=== PATIENT | female | born 1935 | race Caucasian/White ===

== ENCOUNTER 2018-01-05 03:29 | Inpatient (IN) ==
[2018-01-05 04:05] LABS: Basophils # 0.1 10*3/uL (0.0-0.2); Basophils % 0.5 % (0.0-0.8); Eosinophils # 0.2 10*3/uL (0.0-0.87); Eosinophils % 1.7 % (0.00-10.9); Hematocrit 39.3 VOL% (35.7-47.0); Hemoglobin 12.3 GM/DL (12.0-16.0); Immature Granulocytes % 0.4 %; Immature Granulocytes Absolute 0.04 #; Lymphocytes # 1.3 10*3/uL (1.4-4.0); Lymphocytes % 12.8 % (21.3-54.2); Mean Corpuscular HGB Conc 31.3 GM/DL (32-36); Mean Corpuscular Hemoglobin 25 PG (27-34); Mean Corpuscular Volume 79.9 FL (87-102); Mean Platelet Volume 10.9 FL (9.6-12.0); Monocytes # 0.6 10*3/uL (0.11-0.8); Monocytes % 5.5 % (1.7-12.7); Neutrophils # 8.2 10*3/uL (1.4-7.4); Neutrophils % 79.1 % (38.7-73.9); Platelet Count 236 T/CUMM (130-400); Red Blood Count 4.92 MC/CUMM (3.8-5.5); Red Cell Distribution Width 18.7 % (9.3-17.3); White Blood Count 10.3 T/CUMM (4-12)
[2018-01-05] MEDS ORDERED: ONDANSETRON 4 MG/2 ML VIAL IV ONE (04:16)
[2018-01-05] MEDS ORDERED: MORPHINE 4 MG/1 ML VIAL IV STA (04:16)
[2018-01-05 04:17] LABS: PT Patient Result 10.2 SECS; Partial Thromboplastin Time 24.8 SECS (0-40)
[2018-01-05 04:26] LABS: Albumin 3.8 G/DL (3.4-5.0); Bilirubin,Total 0.5 MG/DL (0.2-1.0); Calcium 9.1 MG/DL (8.5-10.1); Osmolality,Calculated 287.5 MOS/KG (273-304); Potassium 4.7 MMOL/L (3.5-5.1); Total Protein 6.8 G/DL (6.4-8.3)
[2018-01-05] MEDS ORDERED: MORPHINE 4 MG/1 ML VIAL IV PRN (05:49)
[2018-01-05] MEDS ORDERED: MAGNESIUM SULF RIDER 2 GM in PREMIX 1 EACH IV PRN (05:49)
[2018-01-05] MEDS ORDERED: ONDANSETRON 4 MG/2 ML VIAL IV PRN (05:49)
[2018-01-05] MEDS ORDERED: NITROGLYCERIN SL 0.4 MG TABLET SL PRN (05:49)
[2018-01-05] MEDS ORDERED: DEXTROSE 50% 25 GM/50 ML VIAL IV PRN (06:09)
[2018-01-05] MEDS ORDERED: GLUCAGON 1 MG VIAL IM PRN (06:09)
[2018-01-05 07:15] LABS: Risk Ratio 3.4; VLDL CHOLESTEROL 21.4 MG/DL
[2018-01-05] MEDS: ENOXAPARIN 60 MG/0.6 ML SYRINGE SUBCUT SCH ×2 (09:14→17:36)
[2018-01-05] MEDS: PANTOPRAZOLE 40 MG TABLET PO SCH ×2 (09:15→20:44)
[2018-01-05] MEDS: GLIMEPIRIDE 2 MG TABLET PO SCH (09:15)
[2018-01-05] MEDS: LISINOPRIL 5 MG TABLET PO SCH (09:15)
[2018-01-05] MEDS: INSULIN REGULAR 100 UNIT/ML SUBCUT SCH ×4 (09:18→20:44)
[2018-01-05] MEDS: TIMOLOL 0.25% OPH SOLN 5 ML BOTTLE BOTH EYES SCH (09:20)
[2018-01-05] MEDS: ASPIRIN EC 81 MG TABLET PO SCH (10:34)
[2018-01-05] MEDS: NITROGLYCERIN 2% OINT 1 INCH/GM PACK TOP SCH ×3 (10:41→22:00)
[2018-01-05 16:13] LABS: CKMB % 5.8 %
[2018-01-05 16:15] LABS: Troponin I 1.72 NG/ML (0.00-0.045)
[2018-01-05] MEDS: ROSUVASTATIN 20 MG TABLET PO SCH (20:44)
[2018-01-06 03:32] LABS: Basophils % 0.4 % (0.0-0.8); Eosinophils # 0.1 10*3/uL (0.0-0.87); Eosinophils % 1.9 % (0.00-10.9); Hematocrit 33.9 VOL% (35.7-47.0); Hemoglobin 10.5 GM/DL (12.0-16.0); Immature Granulocytes % 0.2 %; Immature Granulocytes Absolute 0.01 #; Lymphocytes # 1.6 10*3/uL (1.4-4.0); Lymphocytes % 32.6 % (21.3-54.2); Mean Corpuscular Hemoglobin 25 PG (27-34); Mean Corpuscular Volume 79.2 FL (87-102); Mean Platelet Volume 10.9 FL (9.6-12.0); Monocytes # 0.5 10*3/uL (0.11-0.8); Monocytes % 9.8 % (1.7-12.7); Neutrophils # 2.7 10*3/uL (1.4-7.4); Neutrophils % 55.1 % (38.7-73.9); Platelet Count 190 T/CUMM (130-400); Red Blood Count 4.28 MC/CUMM (3.8-5.5); Red Cell Distribution Width 19.4 % (9.3-17.3); White Blood Count 4.8 T/CUMM (4-12)
[2018-01-06 03:54] LABS: Calcium 8.5 MG/DL (8.5-10.1); Osmolality,Calculated 279.5 MOS/KG (273-304); Potassium 3.9 MMOL/L (3.5-5.1)
[2018-01-06 03:56] LABS: Calcium 8.4 MG/DL (8.5-10.1); Osmolality,Calculated 276.7 MOS/KG (273-304); Potassium 3.9 MMOL/L (3.5-5.1)
[2018-01-06] MEDS: NITROGLYCERIN 2% OINT 1 INCH/GM PACK TOP SCH ×3 (04:38→14:51)
[2018-01-06] MEDS: ENOXAPARIN 60 MG/0.6 ML SYRINGE SUBCUT SCH (06:00)
[2018-01-06] MEDS ORDERED: SODIUM CHLORIDE 0.9% 1,000 ML IV SCH (08:00)
[2018-01-06] MEDS: GLIMEPIRIDE 2 MG TABLET PO SCH (08:48)
[2018-01-06] MEDS: LISINOPRIL 5 MG TABLET PO SCH (08:48)
[2018-01-06] MEDS: PANTOPRAZOLE 40 MG TABLET PO SCH ×2 (08:48→21:55)
[2018-01-06] MEDS: ASPIRIN EC 81 MG TABLET PO SCH (08:48)
[2018-01-06] MEDS: TIMOLOL 0.25% OPH SOLN 5 ML BOTTLE BOTH EYES SCH (08:59)
[2018-01-06] MEDS: INSULIN REGULAR 100 UNIT/ML SUBCUT SCH ×4 (08:59→21:55)
[2018-01-06] MEDS ORDERED: diphenhydrAMINE CAP 25 MG CAPSULE PO ONE (10:00)
[2018-01-06] MEDS ORDERED: POTASSIUM CHLORIDE RIDER 10 MEQ in PREMIX 1 EACH IV PRN (10:00)
[2018-01-06] MEDS ORDERED: DIAZEPAM 5 MG TABLET PO ONE (10:00)
[2018-01-06] MEDS ORDERED: fentaNYL 100 MCG/2 ML VIAL ONE (14:06)
[2018-01-06] MEDS ORDERED: LIDOCAINE 1% 20 ML VIAL ONE (14:06)
[2018-01-06] MEDS ORDERED: MIDAZOLAM 2 MG/2 ML VIAL ONE (14:06)
[2018-01-06] MEDS: ISOSORBIDE MONONITRATE 30 MG TABLET PO SCH (18:02)
[2018-01-06] MEDS: ROSUVASTATIN 20 MG TABLET PO SCH (21:55)
[2018-01-06] MEDS ORDERED: ACETAMINOPHEN 325 MG TABLET PO PRN (23:24)
[2018-01-07 04:42] LABS: Basophils % 0.6 % (0.0-0.8); Eosinophils % 0.9 % (0.00-10.9); Hematocrit 34.2 VOL% (35.7-47.0); Hemoglobin 10.3 GM/DL (12.0-16.0); Immature Granulocytes % 0.3 %; Immature Granulocytes Absolute 0.01 #; Lymphocytes % 29.7 % (21.3-54.2); Mean Corpuscular HGB Conc 30.1 GM/DL (32-36); Mean Corpuscular Hemoglobin 24 PG (27-34); Mean Corpuscular Volume 80.7 FL (87-102); Mean Platelet Volume 11.1 FL (9.6-12.0); Monocytes # 0.4 10*3/uL (0.11-0.8); Neutrophils # 1.9 10*3/uL (1.4-7.4); Neutrophils % 57.5 % (38.7-73.9); Platelet Count 166 T/CUMM (130-400); Red Blood Count 4.24 MC/CUMM (3.8-5.5); Red Cell Distribution Width 19.5 % (9.3-17.3); White Blood Count 3.3 T/CUMM (4-12)
[2018-01-07 05:07] LABS: Calcium 8.2 MG/DL (8.5-10.1); Osmolality,Calculated 278.5 MOS/KG (273-304)
[2018-01-07 07:53] VITALS: BP 127/64
[2018-01-07] MEDS: INSULIN REGULAR 100 UNIT/ML SUBCUT SCH (08:58)
[2018-01-07] MEDS: ISOSORBIDE MONONITRATE 30 MG TABLET PO SCH (08:59)
[2018-01-07] MEDS: ASPIRIN EC 81 MG TABLET PO SCH (08:59)
[2018-01-07] MEDS: GLIMEPIRIDE 2 MG TABLET PO SCH (08:59)
[2018-01-07] MEDS: LISINOPRIL 5 MG TABLET PO SCH (08:59)
[2018-01-07] MEDS: PANTOPRAZOLE 40 MG TABLET PO SCH (08:59)
[2018-01-07] MEDS ORDERED: CLOPIDOGREL 75 MG TABLET PO SCH (09:00)
[2018-01-07] MEDS ORDERED: ENOXAPARIN 40 MG/0.4 ML SYRINGE SUBCUT SCH (09:00)
[2018-01-07] MEDS: TIMOLOL 0.25% OPH SOLN 5 ML BOTTLE BOTH EYES SCH (09:03)
== END 2018-01-07 11:42 | disposition home or self-care (01) | DRG 282 ==
LOC: EDBD → EDUNIT# → N.ED 03:29 → N.EDINP 03:29 → N.TELEN 07:08
PROVIDERS: ADMIT Internal Medicine; ATTEND Internal Medicine
PROC: CLCCHCL (ICD-10-PCS; 2018-01-06 14:45)

== ENCOUNTER 2018-12-23 08:55 | Inpatient (IN) ==
[2018-12-23] MEDS ORDERED: NITROGLYCERIN 2% OINT 1 INCH/GM PACK TOP STA (09:21)
[2018-12-23] MEDS ORDERED: ASPIRIN 325 MG TABLET PO STA (09:21)
[2018-12-23] MEDS ORDERED: ENOXAPARIN 100 MG/ML SYRINGE SUBCUT STA (09:21)
[2018-12-23 09:30] LABS: Basophils % 0.4 % (0.0-0.8); Eosinophils # 0.2 10*3/uL (0.0-0.87); Hematocrit 35.7 VOL% (35.7-47.0); Hemoglobin 11.6 GM/DL (12.0-16.0); Immature Granulocytes % 0.5 %; Immature Granulocytes Absolute 0.04 #; Lymphocytes # 1.2 10*3/uL (1.4-4.0); Lymphocytes % 16.2 % (21.3-54.2); Mean Corpuscular HGB Conc 32.5 GM/DL (32-36); Mean Corpuscular Volume 90.2 FL (87-102); Mean Platelet Volume 10.5 FL (9.6-12.0); Monocytes % 6.8 % (1.7-12.7); Neutrophils % 74.1 % (38.7-73.9); Platelet Count 193 T/CUMM (130-400); Red Blood Count 3.96 MC/CUMM (3.8-5.5); Red Cell Distribution Width 14.3 % (9.3-17.3); White Blood Count 7.6 T/CUMM (4-12)
[2018-12-23 09:39] LABS: INR 0.9; PT Patient Result 10.2 SECS (9.6-12.2)
[2018-12-23 09:55] LABS: Albumin 3.4 G/DL (3.4-5.0); Bilirubin,Total 0.8 MG/DL (0.2-1.0); Calcium 8.5 MG/DL (8.5-10.1); Osmolality,Calculated 289.1 MOS/KG (273-304)
[2018-12-23] MEDS ORDERED: ONDANSETRON 4 MG/2 ML VIAL ONE (10:38)
[2018-12-23] MEDS ORDERED: MORPHINE 4 MG/1 ML VIAL ONE (10:39)
[2018-12-23] MEDS ORDERED: ONDANSETRON 4 MG/2 ML VIAL IV STA ×2 (10:49→13:36)
[2018-12-23] MEDS ORDERED: MORPHINE 4 MG/1 ML VIAL IV STA ×2 (10:50→13:36)
[2018-12-23] MEDS ORDERED: ACETAMINOPHEN 325 MG TABLET PO PRN (12:25)
[2018-12-23] MEDS ORDERED: ONDANSETRON 4 MG/2 ML VIAL IV PRN (12:25)
[2018-12-23 13:34] LABS: Risk Ratio 2.18; Thyroid Stimulating Hormone 1.1 uIU/ml (0.358-3.74); VLDL CHOLESTEROL 28.2 MG/DL
[2018-12-23] MEDS ORDERED: ONDANSETRON 4 MG/2 ML VIAL IV ONE (15:31)
[2018-12-23] MEDS ORDERED: GLUCAGON 1 MG VIAL IM PRN (15:35)
[2018-12-23] MEDS ORDERED: DEXTROSE 10% 250 ML BAG IV PRN (15:35)
[2018-12-23] MEDS ORDERED: NITROGLYCERIN SL 0.4 MG TABLET SL PRN (15:35)
[2018-12-23] MEDS ORDERED: ALUM/MAG/SIMETH/LIDO VISC 1:1 30 ML BOTTLE PO ONE (16:23)
[2018-12-23] MEDS ORDERED: MAGNESIUM SULF RIDER 2 GM in PREMIX 1 EACH IV ONE (16:26)
[2018-12-23] MEDS: INSULIN REGULAR 100 UNIT/ML SUBCUT SCH ×2 (16:44→22:06)
[2018-12-23] MEDS ORDERED: MORPHINE 4 MG/1 ML VIAL IV PRN (17:07)
[2018-12-23] MEDS ORDERED: PROMETHAZINE 25 MG/1 ML VIAL IM PRN (17:09)
[2018-12-23] MEDS ORDERED: NITROGLYCERIN 2% OINT 1 INCH/GM PACK TOP SCH (18:00)
[2018-12-23] MEDS ORDERED: rOPINIRole 1 MG TABLET PO SCH (21:00)
[2018-12-23] MEDS ORDERED: ENOXAPARIN 60 MG/0.6 ML SYRINGE SUBCUT SCH (22:00)
[2018-12-23] MEDS: CARVEDILOL 6.25 MG TABLET PO SCH (22:05)
[2018-12-23] MEDS: metFORMIN 500 MG TABLET PO SCH (22:05)
[2018-12-23] MEDS: SIMVASTATIN 10 MG TABLET PO SCH (22:09)
[2018-12-24 06:08] LABS: Basophils % 0.3 % (0.0-0.8); Eosinophils % 0.3 % (0.00-10.9); Hematocrit 37.2 VOL% (35.7-47.0); Hemoglobin 12.2 GM/DL (12.0-16.0); Immature Granulocytes % 0.3 %; Immature Granulocytes Absolute 0.02 #; Lymphocytes # 1.2 10*3/uL (1.4-4.0); Lymphocytes % 17.1 % (21.3-54.2); Mean Corpuscular HGB Conc 32.8 GM/DL (32-36); Mean Corpuscular Volume 90.5 FL (87-102); Mean Platelet Volume 10.5 FL (9.6-12.0); Monocytes % 7.9 % (1.7-12.7); Neutrophils % 74.1 % (38.7-73.9); Platelet Count 204 T/CUMM (130-400); Red Blood Count 4.11 MC/CUMM (3.8-5.5); Red Cell Distribution Width 14.6 % (9.3-17.3); White Blood Count 6.9 T/CUMM (4-12)
[2018-12-24 06:40] LABS: Calcium 8.5 MG/DL (8.5-10.1); Osmolality,Calculated 288.1 MOS/KG (273-304)
[2018-12-24 06:56] LABS: CKMB % 5.4 %; Troponin I 1.42 NG/ML (0.00-0.045)
[2018-12-24] MEDS ORDERED: PANTOPRAZOLE 40 MG TABLET PO SCH (09:00)
[2018-12-24] MEDS ORDERED: LISINOPRIL 5 MG TABLET PO SCH (09:00)
[2018-12-24] MEDS ORDERED: ENOXAPARIN 40 MG/0.4 ML SYRINGE SUBCUT SCH (09:00)
[2018-12-24] MEDS ORDERED: VERAPAMIL SR 180 MG TABLET PO SCH (09:30)
[2018-12-24] MEDS: INSULIN REGULAR 100 UNIT/ML SUBCUT SCH ×4 (10:22→21:11)
[2018-12-24 15:41] LABS: Apearance,Urine CLEAR (Clear); Bilirubin,Urine Negative (Negative); Blood, Urine Negative (Negative); Glucose,Urine (UA) Negative (Negative); Hyaline Casts,Urine 1 /LPF (0-3); Ketones,Urine 80 mg/dL (Negative); Mucus,Urine Occasional /LPF (Occasional); Nitrite,Urine Negative (Negative); Protein,Urine Negative; RBC,Urine 1 /HPF (0-4); Squamous Epithelial Cell,Urine Occasional /HPF (0-10); Urine Color Yellow (Yellow); Urine Specific Gravity 1.025 (1.001-1.035); Urine Urobilinogen < 2.0 EU/DL (0.2-1.0); WBC,Urine 4 /HPF (0-6)
[2018-12-24] MEDS ORDERED: METOPROLOL TARTRATE 5 MG/5 ML VIAL IV ONE ×2 (16:00→16:05)
[2018-12-24] MEDS: CARVEDILOL 6.25 MG TABLET PO SCH (16:24)
[2018-12-24] MEDS: ENOXAPARIN 40 MG/0.4 ML SYRINGE SUBCUT SCH (16:25)
[2018-12-24] MEDS: IRON (CARBONYL)/VIT C/B12/FA TABLET PO SCH (16:25)
[2018-12-24] MEDS: GLIMEPIRIDE 2 MG TABLET PO SCH (16:25)
[2018-12-24] MEDS: metFORMIN 500 MG TABLET PO SCH ×2 (16:25→21:11)
[2018-12-24] MEDS: ASPIRIN EC 81 MG TABLET PO SCH (16:25)
[2018-12-24] MEDS: TIMOLOL 0.25% OPH SOLN 5 ML BOTTLE BOTH EYES SCH (16:26)
[2018-12-24] MEDS: CETIRIZINE 10 MG TABLET PO SCH (16:26)
[2018-12-24] MEDS ORDERED: DEXTROSE 5% NACL 0.9% 1,000 ML IV SCH (17:00)
[2018-12-24] MEDS ORDERED: DEXTROSE 5% NACL 0.45% 1,000 ML IV SCH (17:00)
[2018-12-24 18:01] LABS: Troponin I 0.852 NG/ML (0.00-0.045)
[2018-12-24 19:09] LABS: Calcium 8.8 MG/DL (8.5-10.1); Osmolality,Calculated 287.3 MOS/KG (273-304)
[2018-12-24 19:55] LABS: Troponin I 0.825 NG/ML (0.00-0.045)
[2018-12-24] MEDS ORDERED: SODIUM CHLORIDE 0.9% 1,000 ML IV SCH (20:00)
[2018-12-24] MEDS: METOPROLOL TARTRATE 25 MG TABLET PO SCH (21:11)
[2018-12-24] MEDS: SIMVASTATIN 10 MG TABLET PO SCH (21:11)
[2018-12-24] MEDS: PANTOPRAZOLE 40 MG TABLET PO SCH (21:11)
[2018-12-24 23:16] LABS: Troponin I 0.742 NG/ML (0.00-0.045)
[2018-12-25 04:12] LABS: Basophils % 0.7 % (0.0-0.8); Eosinophils # 0.1 10*3/uL (0.0-0.87); Eosinophils % 1.4 % (0.00-10.9); Hematocrit 33.1 VOL% (35.7-47.0); Hemoglobin 10.5 GM/DL (12.0-16.0); Immature Granulocytes % 0.2 %; Immature Granulocytes Absolute 0.01 #; Lymphocytes # 1.4 10*3/uL (1.4-4.0); Lymphocytes % 25.2 % (21.3-54.2); Mean Corpuscular HGB Conc 31.7 GM/DL (32-36); Mean Corpuscular Volume 92.2 FL (87-102); Mean Platelet Volume 10.8 FL (9.6-12.0); Monocytes % 10.4 % (1.7-12.7); Neutrophils % 62.1 % (38.7-73.9); Platelet Count 172 T/CUMM (130-400); Red Blood Count 3.59 MC/CUMM (3.8-5.5); Red Cell Distribution Width 14.5 % (9.3-17.3); White Blood Count 5.6 T/CUMM (4-12)
[2018-12-25 04:21] LABS: Calcium 8.3 MG/DL (8.5-10.1); Osmolality,Calculated 291.7 MOS/KG (273-304)
[2018-12-25 04:27] LABS: Troponin I 0.536 NG/ML (0.00-0.045)
[2018-12-25] MEDS: INSULIN REGULAR 100 UNIT/ML SUBCUT SCH ×4 (07:33→21:52)
[2018-12-25] MEDS: CETIRIZINE 10 MG TABLET PO SCH (08:32)
[2018-12-25] MEDS: IRON (CARBONYL)/VIT C/B12/FA TABLET PO SCH (08:32)
[2018-12-25] MEDS: GLIMEPIRIDE 2 MG TABLET PO SCH (08:32)
[2018-12-25] MEDS: PANTOPRAZOLE 40 MG TABLET PO SCH ×2 (08:32→21:50)
[2018-12-25] MEDS: ISOSORBIDE MONONITRATE 30 MG TABLET PO SCH (08:33)
[2018-12-25] MEDS: metFORMIN 500 MG TABLET PO SCH (08:33)
[2018-12-25] MEDS: ASPIRIN EC 81 MG TABLET PO SCH (08:33)
[2018-12-25] MEDS: ENOXAPARIN 40 MG/0.4 ML SYRINGE SUBCUT SCH (08:34)
[2018-12-25] MEDS: METOPROLOL TARTRATE 25 MG TABLET PO SCH ×2 (08:34→21:50)
[2018-12-25] MEDS: TIMOLOL 0.25% OPH SOLN 5 ML BOTTLE BOTH EYES SCH (08:48)
[2018-12-25] MEDS ORDERED: CYANOCOBALAMIN 1000 MCG/1 ML VIAL SUBCUT SCH (09:00)
[2018-12-25] MEDS ORDERED: MAGNESIUM SULF RIDER 4 GM in PREMIX 1 EACH IV PRN (09:18)
[2018-12-25] MEDS ORDERED: MAGNESIUM SULF RIDER 2 GM in PREMIX 1 EACH IV PRN (09:18)
[2018-12-25] MEDS: CALCIUM CARBONATE CHEW 500 MG TABLET PO SCH ×2 (10:57→21:49)
[2018-12-25] MEDS: SIMVASTATIN 10 MG TABLET PO SCH (21:50)
[2018-12-26 05:49] LABS: Basophils % 0.4 % (0.0-0.8); Eosinophils # 0.2 10*3/uL (0.0-0.87); Eosinophils % 3.4 % (0.00-10.9); Hematocrit 30.8 VOL% (35.7-47.0); Immature Granulocytes % 0.2 %; Immature Granulocytes Absolute 0.01 #; Lymphocytes # 1.5 10*3/uL (1.4-4.0); Lymphocytes % 32.3 % (21.3-54.2); Mean Corpuscular HGB Conc 32.5 GM/DL (32-36); Mean Corpuscular Volume 89.5 FL (87-102); Mean Platelet Volume 11.3 FL (9.6-12.0); Neutrophils % 52.7 % (38.7-73.9); Platelet Count 166 T/CUMM (130-400); Red Blood Count 3.44 MC/CUMM (3.8-5.5); Red Cell Distribution Width 14.2 % (9.3-17.3); White Blood Count 4.7 T/CUMM (4-12)
[2018-12-26] MEDS: TIMOLOL 0.25% OPH SOLN 5 ML BOTTLE BOTH EYES SCH (09:29)
[2018-12-26] MEDS: ENOXAPARIN 40 MG/0.4 ML SYRINGE SUBCUT SCH (09:29)
[2018-12-26] MEDS: INSULIN REGULAR 100 UNIT/ML SUBCUT SCH ×4 (09:29→20:47)
[2018-12-26] MEDS: GLIMEPIRIDE 2 MG TABLET PO SCH (09:30)
[2018-12-26] MEDS: CALCIUM CARBONATE CHEW 500 MG TABLET PO SCH ×2 (09:30→20:42)
[2018-12-26] MEDS: METOPROLOL TARTRATE 25 MG TABLET PO SCH (09:30)
[2018-12-26] MEDS: CETIRIZINE 10 MG TABLET PO SCH (09:30)
[2018-12-26] MEDS: IRON (CARBONYL)/VIT C/B12/FA TABLET PO SCH (09:30)
[2018-12-26] MEDS: ISOSORBIDE MONONITRATE 30 MG TABLET PO SCH (09:30)
[2018-12-26] MEDS: ASPIRIN EC 81 MG TABLET PO SCH (09:30)
[2018-12-26] MEDS: PANTOPRAZOLE 40 MG TABLET PO SCH ×2 (09:30→20:43)
[2018-12-26] MEDS: METOPROLOL SUCCINATE XL 25 MG TABLET PO SCH (20:43)
[2018-12-26] MEDS: SIMVASTATIN 10 MG TABLET PO SCH (20:43)
[2018-12-27] MEDS: LOSARTAN 25 MG TABLET PO SCH ×2 (01:11→08:40)
[2018-12-27 05:55] LABS: Basophils % 0.5 % (0.0-0.8); Eosinophils # 0.2 10*3/uL (0.0-0.87); Eosinophils % 4.7 % (0.00-10.9); Hematocrit 32.7 VOL% (35.7-47.0); Hemoglobin 10.6 GM/DL (12.0-16.0); Immature Granulocytes % 0.5 %; Immature Granulocytes Absolute 0.02 #; Lymphocytes # 1.5 10*3/uL (1.4-4.0); Lymphocytes % 35.1 % (21.3-54.2); Mean Corpuscular HGB Conc 32.4 GM/DL (32-36); Mean Corpuscular Volume 89.3 FL (87-102); Mean Platelet Volume 11.1 FL (9.6-12.0); Monocytes % 10.7 % (1.7-12.7); Neutrophils % 48.5 % (38.7-73.9); Platelet Count 173 T/CUMM (130-400); Red Blood Count 3.66 MC/CUMM (3.8-5.5); Red Cell Distribution Width 13.8 % (9.3-17.3); White Blood Count 4.2 T/CUMM (4-12)
[2018-12-27 06:19] LABS: Calcium 8.8 MG/DL (8.5-10.1); Osmolality,Calculated 286.3 MOS/KG (273-304)
[2018-12-27] MEDS: INSULIN REGULAR 100 UNIT/ML SUBCUT SCH ×3 (07:55→16:18)
[2018-12-27] MEDS: ENOXAPARIN 40 MG/0.4 ML SYRINGE SUBCUT SCH (08:39)
[2018-12-27] MEDS: GLIMEPIRIDE 2 MG TABLET PO SCH (08:40)
[2018-12-27] MEDS: PANTOPRAZOLE 40 MG TABLET PO SCH (08:40)
[2018-12-27] MEDS: CALCIUM CARBONATE CHEW 500 MG TABLET PO SCH (08:40)
[2018-12-27] MEDS: IRON (CARBONYL)/VIT C/B12/FA TABLET PO SCH (08:40)
[2018-12-27] MEDS: TIMOLOL 0.25% OPH SOLN 5 ML BOTTLE BOTH EYES SCH (08:40)
[2018-12-27] MEDS: ISOSORBIDE MONONITRATE 30 MG TABLET PO SCH (08:40)
[2018-12-27] MEDS: CETIRIZINE 10 MG TABLET PO SCH (08:40)
[2018-12-27] MEDS: ASPIRIN EC 81 MG TABLET PO SCH (08:40)
[2018-12-27] MEDS: METOPROLOL SUCCINATE XL 25 MG TABLET PO SCH (08:40)
[2018-12-27] MEDS ORDERED: CLOPIDOGREL 75 MG TABLET PO SCH (09:00)
[2018-12-27 16:40] VITALS: BP 119/72
== END 2018-12-27 17:45 | disposition home or self-care (01) | DRG 309 ==
LOC: EDBD → EDUNIT# → N.ED 08:55 → N.EDINP 08:55 → N.TELES 14:47 → N.ICU 12-24 16:15 → N.TELEN 12-25 13:30 → SUATTDRO 12-25 15:13
PROVIDERS: ADMIT Family Medicine; ATTEND Internal Medicine